=== PATIENT | female | born 1935 | race Caucasian/White ===

== ENCOUNTER → 2017-03-30 | Outpatient (CLI) | payer MEDICARE, OTHER ==
[~2017-03-30] MED LIST: ECO81 PO; GLU850 PO; LOP50 PO; NEU300 PO; ZES20 PO; ZOC20 PO
== END | disposition home or self-care (01) ==
LOC: RD 12:09
DX: J06.9 Acute upper respiratory infection, unspecified (principal)

== ENCOUNTER 2017-10-22 16:45 | Inpatient (IN) | payer OTHER, MEDICARE ==
[~2017-10-22] VITALS: Ht 157.5 cm; Wt 51.7 kg
[2017-10-22 20:26] LABS: PLATELET COUNT 110 x10^3mcL (130-400)
[2017-10-22 20:27] LABS: BASOPHIL % 0.3 % (0-2)
[2017-10-22 20:30] LABS: CALCIUM 7.9 mg/dL (8.5-10.1); CARBON DIOXIDE 24.1 mmol/L (21-32); CHLORIDE SERUM 96 mmol/L (98-107); GLUCOSE SERUM 108 mg/dL (74-106); POTASSIUM SERUM 3.2 mmol/L (3.5-5.1); SODIUM SERUM 131 mmol/L (136-145)
[2017-10-22] MEDS ORDERED: LOP100 PO (20:37)
[2017-10-22 20:42] LABS: ALKALINE PHOSPHATASE 112 U/L (46-116); ALT/SGPT 26 U/L (14-59); AST/SGOT 36 U/L (15-37); BILIRUBIN TOTAL 0.5 mg/dL (0.20-1.00); TOTAL PROTEIN, SERUM 7.8 g/dL (6.4-8.2)
[2017-10-22] MEDS ORDERED: ARICEPT5 MG PO (20:42)
[2017-10-22 20:43] LABS: ALBUMIN 2.8 g/dL (3.4-5.0)
[2017-10-22 21:22] LABS: FREE T4 1.58 ng/dL (0.76-1.46); FREE THYROXINE INDEX 2.7 ug/dL (1.4-4.5); T4(THYROXINE) 6.7 ug/dL (4.7-13.3)
[2017-10-22 21:32] LABS: T3 TOTAL 0.71 ng/mL
[2017-10-22 21:52] VITALS: BP 155/72
[2017-10-22 22:12] LABS: MAGNESIUM 1.9 mg/dL (1.8-2.4); PHOSPHOROUS 3.2 mg/dL (2.5-4.9)
[2017-10-22 22:14] LABS: CHOLESTEROL/HDL RATIO 1.6
[2017-10-23 00:20] LABS: UA SPECIFIC GRAVITY 1.015 (1.005-1.035); microscopic required? YES; urine erythrocyte 1+ (NEGATIVE)
[2017-10-23] MEDS ORDERED: FUROSEMIDE40 MG PO (00:26)
[2017-10-23] MEDS ORDERED: PEPCID20 MG PO (00:27)
[2017-10-23] MEDS ORDERED: MEX150 PO (00:28)
[2017-10-23] MEDS ORDERED: CLOPIDOGREL75 M1 PO (00:29)
[2017-10-23] MEDS ORDERED: ECOTRIN81 M2 PO (00:30)
[2017-10-23 02:08] VITALS: BP 155/72
[2017-10-23 05:21] VITALS: BP 134/60
[2017-10-23 06:46] LABS: CALCIUM 7.5 mg/dL (8.5-10.1); CARBON DIOXIDE 25.6 mmol/L (21-32); CHLORIDE SERUM 99 mmol/L (98-107); CREATININE SERUM 1.1 mg/dL (0.6-1.0); GLUCOSE SERUM 101 mg/dL (74-106); MAGNESIUM 1.8 mg/dL (1.8-2.4); PHOSPHOROUS 3.1 mg/dL (2.5-4.9); POTASSIUM SERUM 3.5 mmol/L (3.5-5.1); SODIUM SERUM 134 mmol/L (136-145)
[2017-10-23 07:16] LABS: PLATELET COUNT 105 x10^3mcL (130-400); RED CELL DISTRIBUTION WIDTH 15.2 % (11.5-14.5)
[2017-10-23 07:17] LABS: BASOPHIL % 0.3 % (0-2)
[2017-10-23 09:25] VITALS: BP 129/62
[2017-10-23 12:12] VITALS: BP 123/54
[2017-10-23 17:56] VITALS: BP 112/55; BP 156/63
[2017-10-23 21:19] VITALS: BP 147/69
[2017-10-24 05:33] VITALS: BP 113/60
[2017-10-24 07:07] LABS: CALCIUM 8.3 mg/dL (8.5-10.1); CARBON DIOXIDE 26.4 mmol/L (21-32); CHLORIDE SERUM 102 mmol/L (98-107); CREATININE SERUM 1.2 mg/dL (0.6-1.0); GLUCOSE SERUM 121 mg/dL (74-106); MAGNESIUM 1.9 mg/dL (1.8-2.4); PHOSPHOROUS 3.2 mg/dL (2.5-4.9); POTASSIUM SERUM 3.2 mmol/L (3.5-5.1); SODIUM SERUM 139 mmol/L (136-145)
[2017-10-24 07:08] LABS: BASOPHIL % 0.9 % (0-2); RED CELL DISTRIBUTION WIDTH 14.1 % (11.5-14.5)
[2017-10-24 07:19] LABS: PLATELET COUNT 109 x10^3mcL (130-400)
[2017-10-24 09:34] VITALS: BP 138/76
[2017-10-24 13:01] VITALS: BP 149/63
[2017-10-24] MEDS ORDERED: CLINDAMYCIN HC300 MG PO (14:55)
[2017-10-24] MEDS ORDERED: LEVAQUIN750 MG PO (14:55)
[2017-10-24] MEDS ORDERED: BD LACTINEX1.4 MG PO (14:56)
[2017-10-24 15:15] VITALS: BP 149/63
== END 2017-10-24 16:38 | disposition home or self-care (01) | DRG 137 ==
LOC: ED 16:45 → DU 20:09
PROVIDERS: Emergency Medicine; Family Medicine
DX: J69.0 Pneumonitis due to inhalation of food and vomit (principal); N17.0 Acute kidney failure with tubular necrosis; E43 Unspecified severe protein-calorie malnutrition; I50.43 Acute on chronic combined systolic (congestive) and diastolic (congestive) heart failure; K85.90 Acute pancreatitis without necrosis or infection, unspecified; D70.9 Neutropenia, unspecified; D68.69 Other thrombophilia; E11.65 Type 2 diabetes mellitus with hyperglycemia; D69.6 Thrombocytopenia, unspecified; F03.90 Unspecified dementia, unspecified severity, without behavioral disturbance, psychotic disturbance, mood disturbance, and anxiety; Z95.1 Presence of aortocoronary bypass graft; E87.1 Hypo-osmolality and hyponatremia; E78.5 Hyperlipidemia, unspecified; Z79.82 Long term (current) use of aspirin; Z79.84 Long term (current) use of oral hypoglycemic drugs; Z95.810 Presence of automatic (implantable) cardiac defibrillator; Z86.73 Personal history of transient ischemic attack (TIA), and cerebral infarction without residual deficits; Z68.21 Body mass index [BMI] 21.0-21.9, adult; E87.6 Hypokalemia; M94.0 Chondrocostal junction syndrome [Tietze]; Z88.8 Allergy status to other drugs, medicaments and biological substances; I11.0 Hypertensive heart disease with heart failure; E02 Subclinical iodine-deficiency hypothyroidism
CPT/HCPCS: 82962; 83880; 84439; 87804; 94150; J0696; J1200; J1644; J1940; J1956; J2543; J3480; J3490; J7030; J7613; J7620; J7644; Q0092

== ENCOUNTER → 2018-01-11 | Outpatient (CLI) | payer MEDICARE, OTHER ==
[~2018-01-11] MED LIST changes: +ARICEPT5 MG PO; +BD LACTINEX1.4 MG PO; +CLINDAMYCIN HC300 MG PO; +CLOPIDOGREL75 M1 PO; +ECOTRIN81 M2 PO; +FUROSEMIDE40 MG PO; +LEVAQUIN750 MG PO; +LOP100 PO; +MEX150 PO; +PEPCID20 MG PO
== END | disposition home or self-care (01) ==
LOC: US 01-09 10:00
PROC: B54DZZZ Ultrasonography of Bilateral Lower Extremity Veins (ICD-10-PCS; principal; 2018-01-11)
DX: L97.509 Non-pressure chronic ulcer of other part of unspecified foot with unspecified severity (principal)